=== PATIENT | male | born 1980 | race Caucasian/White ===

== ENCOUNTER → 2016-08-23 | Outpatient (CLI) | payer MEDICARE, MEDICAID | LOC: RAD 08:21 | PROVIDERS: ATTEND Nurse Practitioner Family | DX: R56.9 Unspecified convulsions (principal) | CPT/HCPCS: 70553; 70250; A9577 ==

== ENCOUNTER 2016-08-24 13:06 | Emergency (ER) | payer MEDICARE, MEDICAID ==
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
[2016-08-24 13:49] LABS: ABSOLUTE LYMPHOCYTES (AUTO) 1.7 10^3/uL (0.5-4.7); ABSOLUTE MONOCYTES (AUTO) 0.4 10^3/uL (0.1-1.4); BASOPHILS % (AUTO) 0.3 % (0-2); EOSINOPHILS % (AUTO) 0.7 % (0-6); HEMATOCRIT 42.1 % (37.9-51.0); HEMOGLOBIN 14.8 g/dL (13.5-17.0); HGB HCT DIFFERENCE 2.3; LYMPHOCYTES % (AUTO) 28.3 % (13-45); MEAN CORPUSCULAR HEMOGLOBIN 30.8 pg (27.0-33.4); MEAN CORPUSCULAR HGB CONC 35.1 g/dL (32.0-36.0); MEAN CORPUSCULAR VOLUME 88 fl (80-97); SEGMENTED NEUTROPHILS % (AUTO) 64.7 % (42-78); WHITE BLOOD COUNT 6.1 10^3/uL (4.0-10.5)
--- NOTE | 2016-08-24 13:50 | EKG REPORT ---
SEVERITY:- NORMAL ECG - SINUS RHYTHM : Confirmed by: Azeem Corcoran 24-Aug-2016 13:49:17
[2016-08-24 14:10] LABS: APPEARANCE,URINE SLIGHTLY-CLOUDY; BILIRUBIN,URINE NEGATIVE (NEGATIVE); GLUCOSE, URINE NEGATIVE (NEGATIVE); KETONES,URINE NEGATIVE (NEGATIVE); LEUKOCYTE ESTERASE,URINE NEGATIVE (NEGATIVE); NITRITE,URINE NEGATIVE (NEGATIVE); PROTEIN,URINE NEGATIVE (NEGATIVE); URINE SPECIFIC GRAVITY 1.023; UROBILINOGEN,URINE NEGATIVE mg/dL (<2.0)
[2016-08-24 14:11] LABS: ALANINE AMINOTRANSFERASE 84 U/L (21-72); ALBUMIN 4.6 g/dL (3.5-5.0); ALKALINE PHOSPHATASE 79 U/L (38-126); ANION GAP 13 (5-19); ASPARTATE AMINO TRANSFERASE 38 U/L (17-59); BILIRUBIN,TOTAL 0.4 mg/dL (0.2-1.3); BLOOD UREA NITROGEN 14 mg/dL (7-20); CALCIUM 9.7 mg/dL (8.4-10.2); CARBON DIOXIDE 27 mmol/L (22-30); CHLORIDE 108 mmol/L (98-107); GLUCOSE 81 mg/dL (75-110); POTASSIUM 4.8 mmol/L (3.6-5.0); SODIUM 148.1 mmol/L (137-145); TOTAL PROTEIN 7.3 g/dL (6.3-8.2)
[2016-08-24 14:12] LABS: ALCOHOL < 10 mg/dL (NONE DETECTED)
[2016-08-24 14:16] LABS: URINE BARBITURATES SCREEN NEGATIVE; URINE METHADONE SCREEN NEGATIVE; URINE PHENCYCLIDINE SCREEN NEGATIVE
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
--- NOTE | 2016-08-25 10:34 | ER Document Report ---
ED Psych Disorder / Suicide - General Chief Complaint: Psych Problem Stated Complaint: IVC/PAPERS Mode of Arrival: Ambulatory TRAVEL OUTSIDE OF THE [place] IN LAST 30 DAYS: No - Related Data Allergies/Adverse Reactions: codeine Allergy (Verified 08/24/16 13:10) Home Medications: Current Home Medications Aripiprazole [Abilify 5 mg Tablet] 5 mg PO BID 08/24/16 [History] Benztropine Mesylate [Benztropine Mesylate 0.5 mg Tablet] 0.5 mg PO BID [History] Clonazepam [Klonopin] 0.5 mg PO BID 08/24/16 [History] Lamotrigine [Lamictal Xr] 400 mg PO QHS 08/24/16 [History] Olanzapine [Zyprexa] 10 mg PO Q12 08/24/16 [History] Oxcarbazepine [Trileptal] 600 mg PO BID 08/24/16 [History] Topiramate [Trokendi Xr] 100 mg PO QHS 08/24/16 [History] Topiramate [Trokendi Xr] 200 mg PO QHS 08/24/16 [History] Past Medical History - General Information source: Patient - Social History Smoking Status: Never Smoker Cigarette use (# per day): No Chew tobacco use (# tins/day): Yes Frequency of alcohol use: None Drug Abuse: None Family History: Reviewed & Not Pertinent Patient has suicidal ideation: Yes Patient has homicidal ideation: Yes Neurological Medical History: Reports: Hx Seizures Psychiatric Medical History: Reports: Hx Depression, Hx Schizophrenia - Schizoaffective disorder - Immunizations Hx Diphtheria, Pertussis, Tetanus Vaccination: No Physical Exam - Vital signs Vitals: Temp Pulse Resp BP Pulse Ox 97.8 F 66 18 118/68 100 08/24/16 13:10 08/24/16 13:10 08/24/16 13:10 08/24/16 13:10 08/24/16 13:10 Course - Re-evaluation Re-evalutation: 08/25/16 10:33 Patient is awake and alert. To this examiner he has no specific complaints at this time. PE: Cooperative, chest clear to auscultation bilaterally, breath sounds are equal moves extremities well. Speech is clear. He answers questions appropriately. Awaiting mental health transfer. - Vital Signs Vital signs: Temp Pulse Resp BP Pulse Ox 97.8 F 69 18 113/66 99 08/24/16 13:10 08/25/16 05:09 08/25/16 05:09 08/25/16 05:09 08/25/16 05:09 - Laboratory Result Diagrams: 08/24/16 13:25 08/24/16 13:25 Laboratory results interpreted by me: 08/24/16 13:25 Sodium 148.1 H Chloride 108 H ALT 84 H Salicylates < 1.0 L Acetaminophen < 10 L Discharge - Discharge Clinical Impression: Hearing voices Schizophrenia Qualifiers: Schizophrenia type: unspecified Qualified Code(s): F20.9 - Schizophrenia, unspecified Condition: Stable Disposition: PSYCH HOSP/UNIT
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
[2016-08-25] MEDS: OLANZAPINE 5 MG TABLET PO SCH (16:30)
[2016-08-25] MEDS: OXCARBAZEPINE 150 MG TABLET PO SCH (16:31)
[2016-08-25] MEDS: BENZTROPINE MESYLATE 1 MG TABLET PO SCH (16:31)
[2016-08-25] MEDS: CLONAZEPAM 1 MG TABLET PO SCH (16:33)
[2016-08-25] MEDS ORDERED: TOPIRAMATE 100 MG TABLET ONE (21:28)
[2016-08-25] MEDS: TOPIRAMATE 100 MG TABLET PO SCH (21:45)
[2016-08-25] MEDS: LAMOTRIGINE 100 MG TABLET PO SCH (21:46)
[2016-08-26] MEDS: BENZTROPINE MESYLATE 1 MG TABLET PO SCH ×2 (09:41→17:42)
[2016-08-26] MEDS: CLONAZEPAM 1 MG TABLET PO SCH ×2 (09:41→17:41)
[2016-08-26] MEDS: OLANZAPINE 5 MG TABLET PO SCH (09:42)
[2016-08-26] MEDS: OXCARBAZEPINE 150 MG TABLET PO SCH ×2 (09:42→17:41)
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
[2016-08-26] MEDS ORDERED: ARIPIPRAZOLE 5 MG TABLET PO SCH (14:00)
[2016-08-26] MEDS ORDERED: RISPERIDONE 0.25 MG TABLET PO SCH (14:00)
[2016-08-26] MEDS ORDERED: ARIPIPRAZOLE 5 MG TABLET PO ONE (15:30)
[2016-08-26] MEDS ORDERED: RISPERIDONE 0.25 MG TABLET PO ONE (15:30)
[2016-08-26] MEDS: LAMOTRIGINE 100 MG TABLET PO SCH (23:05)
[2016-08-26] MEDS: TOPIRAMATE 100 MG TABLET PO SCH (23:05)
[2016-08-26] MEDS: RISPERIDONE 0.25 MG TABLET PO SCH (23:05)
[2016-08-27] MEDS: RISPERIDONE 0.25 MG TABLET PO SCH (09:09)
[2016-08-27] MEDS: CLONAZEPAM 1 MG TABLET PO SCH (09:09)
[2016-08-27] MEDS: BENZTROPINE MESYLATE 1 MG TABLET PO SCH (09:09)
[2016-08-27] MEDS: OXCARBAZEPINE 150 MG TABLET PO SCH (09:10)
--- NOTE | 2016-08-27 09:22 | ER Document Report ---
Doctor's Note Notes: 08/27/16 09:22 Lab work vital signs have been reviewed. At this time patient is currently stable with no overnight events requiring no intervention at this time. Patient stable for transfer or other disposition
[2016-08-27 11:20] VITALS: BP 114/62
--- NOTE | 2016-08-28 08:07 | PSYCHOLOGICAL NOTE ---
Psych Note - Psych Note Psych Note: Reevaluation: Clinician conducted check in with patient, patient smiled when he saw clinician. He discussed that he would like to get a job and that he loves living in his longterm. He continue just state that he needs therapy however he is unable to schedule because they say he's canceled too often. When asked about coping skills he stated he refuses to use them because the breathing stuff does not work. When asked what does work he states he listens to the radio. Patient disclosed that he knows Vicky wanted him to be more involved with the longterm but sometimes it gets "crowded." Patient has demonstrated marked improvement no longer meets criteria and is recommended for rescind of IVC this considered psychiatrically clear for discharge. Patient mood euthymic with congruent affect observe to smile and laugh. Dr. Hendrix was consulted on this patient attending physician is in agreement with the recommendations and disposition.
== END 2016-08-27 11:20 | disposition home or self-care (01) ==
LOC: ER 13:06
DX: F25.9 Schizoaffective disorder, unspecified (principal); Z91.14 Patient's other noncompliance with medication regimen; Z88.5 Allergy status to narcotic agent; Z72.0 Tobacco use
CPT/HCPCS: 93005; 99285; 36415; 80307 ×4; 85025; 80053; 81001; 93010; A9270 ×18; J3490

== ENCOUNTER → 2017-02-18 | Outpatient (CLI) | payer MEDICARE, MEDICAID | LOC: OD 11:17 | PROVIDERS: ATTEND Physician Assistant | DX: F25.0 Schizoaffective disorder, bipolar type (principal); Z79.899 Other long term (current) drug therapy | CPT/HCPCS: 36415; 83036; 84146 ==

== ENCOUNTER → 2017-02-20 | Outpatient (CLI) | payer MEDICARE, MEDICAID ==
[2017-02-20 10:30] LABS: CHOLESTEROL 208.31 mg/dL (0-200); Direct HDL 36 mg/dL (>40); TRIGLYCERIDES 208 mg/dL (<150)
[2017-02-20 10:43] LABS: DIRECT LDL 102 mg/dL (<100)
[2017-02-20 10:47] LABS: VLDL CHOLESTEROL 41.6 mg/dL (10-31)
== END ==
LOC: OD 09:31
PROVIDERS: ATTEND Physician Assistant
DX: F25.0 Schizoaffective disorder, bipolar type (principal); Z79.899 Other long term (current) drug therapy
CPT/HCPCS: 36415; 80061

== ENCOUNTER → 2019-05-09 | Outpatient (CLI) | payer MEDICARE, MEDICAID ==
[2019-05-09 11:03] LABS: ABSOLUTE EOSINOPHILS # (AUTO) 0.1 10^3/uL (0.0-0.6); ABSOLUTE LYMPHOCYTES (AUTO) 1.7 10^3/uL (0.5-4.7); ABSOLUTE MONOCYTES (AUTO) 0.4 10^3/uL (0.1-1.4); ABSOLUTE NEUT (AUTO) 3.8 10^3/uL (1.7-8.2); BASOPHILS % (AUTO) 0.4 % (0-2); EOSINOPHILS % (AUTO) 1.2 % (0-6); HEMATOCRIT 43.3 % (37.9-51.0); LYMPHOCYTES % (AUTO) 28.1 % (13-45); MEAN CORPUSCULAR HEMOGLOBIN 30.4 pg (27.0-33.4); MEAN CORPUSCULAR HGB CONC 34.6 g/dL (32.0-36.0); MEAN CORPUSCULAR VOLUME 88 fl (80-97); MONOCYTES % (AUTO) 6.6 % (3-13); PLATELET COUNT 207 10^3/uL (150-450); RED BLOOD COUNT 4.92 10^6/uL (4.35-5.55); RED CELL DISTRIBUTION WIDTH 12.8 % (11.5-14.0); SEGMENTED NEUTROPHILS % (AUTO) 63.7 % (42-78); TOTAL CELLS COUNTED % (AUTO) 100 %; WHITE BLOOD COUNT 5.9 10^3/uL (4.0-10.5)
[2019-05-09 11:09] LABS: ALBUMIN 4.5 g/dL (3.5-5.0); ALKALINE PHOSPHATASE 94 U/L (38-126); ANION GAP 11 (5-19); ASPARTATE AMINO TRANSFERASE 27 U/L (17-59); BILIRUBIN,DIRECT 0.2 mg/dL (0.0-0.4); BILIRUBIN,TOTAL 0.3 mg/dL (0.2-1.3); BLOOD UREA NITROGEN 13 mg/dL (7-20); CALCIUM 9.5 mg/dL (8.4-10.2); CARBON DIOXIDE 25 mmol/L (22-30); CHLORIDE 105 mmol/L (98-107); CHOLESTEROL 222.14 mg/dL (0-200); GLUCOSE 97 mg/dL (75-110); POTASSIUM 4.5 mmol/L (3.6-5.0); TOTAL PROTEIN 7.3 g/dL (6.3-8.2); TRIGLYCERIDES 218 mg/dL (<150)
[2019-05-09 11:20] LABS: DIRECT LDL 96 mg/dL (<100)
[2019-05-09 11:23] LABS: VLDL CHOLESTEROL 43.6 mg/dL (10-31)
== END ==
LOC: OD 09:39
PROVIDERS: ATTEND Internal Medicine
DX: Z00.00 Encounter for general adult medical examination without abnormal findings (principal); E78.00 Pure hypercholesterolemia, unspecified; R63.5 Abnormal weight gain; F17.210 Nicotine dependence, cigarettes, uncomplicated; Z79.899 Other long term (current) drug therapy
CPT/HCPCS: 36415; 80053; 80061; 85025

== ENCOUNTER → 2020-01-14 | Outpatient (CLI) | payer MEDICARE, MEDICAID ==
[2020-01-14 09:09] LABS: ABSOLUTE EOSINOPHILS # (AUTO) 0.2 10^3/uL (0.0-0.6); ABSOLUTE MONOCYTES (AUTO) 0.5 10^3/uL (0.1-1.4); ABSOLUTE NEUT (AUTO) 3.9 10^3/uL (1.7-8.2); BASOPHILS % (AUTO) 0.4 % (0-2); EOSINOPHILS % (AUTO) 2.5 % (0-6); HEMOGLOBIN 15.7 g/dL (13.5-17.0); LYMPHOCYTES % (AUTO) 29.9 % (13-45); MEAN CORPUSCULAR HEMOGLOBIN 31.9 pg (27.0-33.4); MEAN CORPUSCULAR HGB CONC 35.7 g/dL (32.0-36.0); MEAN CORPUSCULAR VOLUME 89 fl (80-97); MONOCYTES % (AUTO) 7.4 % (3-13); PLATELET COUNT 215 10^3/uL (150-450); RED BLOOD COUNT 4.92 10^6/uL (4.35-5.55); RED CELL DISTRIBUTION WIDTH 12.9 % (11.5-14.0); SEGMENTED NEUTROPHILS % (AUTO) 59.8 % (42-78); TOTAL CELLS COUNTED % (AUTO) 100 %; WHITE BLOOD COUNT 6.6 10^3/uL (4.0-10.5)
[2020-01-14 09:33] LABS: ALBUMIN 4.3 g/dL (3.5-5.0); ALKALINE PHOSPHATASE 107 U/L (38-126); ANION GAP 9 (5-19); ASPARTATE AMINO TRANSFERASE 28 U/L (17-59); BILIRUBIN,TOTAL 0.3 mg/dL (0.2-1.3); BLOOD UREA NITROGEN 22 mg/dL (7-20); CALCIUM 9.2 mg/dL (8.4-10.2); CARBON DIOXIDE 24 mmol/L (22-30); CHLORIDE 106 mmol/L (98-107); CHOLESTEROL 221.37 mg/dL (0-200); GLUCOSE 101 mg/dL (75-110); POTASSIUM 4.9 mmol/L (3.6-5.0); TOTAL PROTEIN 7.4 g/dL (6.3-8.2); TRIGLYCERIDES 398 mg/dL (<150)
[2020-01-14 09:44] LABS: DIRECT LDL 105 mg/dL (<100)
[2020-01-14 09:50] LABS: VLDL CHOLESTEROL 79.6 mg/dL (10-31)
== END ==
LOC: OD 08:25
PROVIDERS: ATTEND Physician Assistant
DX: F25.0 Schizoaffective disorder, bipolar type (principal); Z79.899 Other long term (current) drug therapy
CPT/HCPCS: 36415; 80053; 80061; 83036; 85025

== ENCOUNTER → 2020-06-07 | Outpatient (CLI) | payer MEDICARE, MEDICAID ==
[2020-06-07 08:46] LABS: ABSOLUTE EOSINOPHILS # (AUTO) 0.2 10^3/uL (0.0-0.6); ABSOLUTE LYMPHOCYTES (AUTO) 1.8 10^3/uL (0.5-4.7); ABSOLUTE MONOCYTES (AUTO) 0.5 10^3/uL (0.1-1.4); ABSOLUTE NEUT (AUTO) 3.8 10^3/uL (1.7-8.2); BASOPHILS % (AUTO) 0.4 % (0-2); EOSINOPHILS % (AUTO) 2.5 % (0-6); HEMATOCRIT 40.9 % (37.9-51.0); HEMOGLOBIN 14.7 g/dL (13.5-17.0); LYMPHOCYTES % (AUTO) 28.6 % (13-45); MEAN CORPUSCULAR HEMOGLOBIN 31.7 pg (27.0-33.4); MEAN CORPUSCULAR VOLUME 88 fl (80-97); MONOCYTES % (AUTO) 7.2 % (3-13); PLATELET COUNT 197 10^3/uL (150-450); RED BLOOD COUNT 4.64 10^6/uL (4.35-5.55); SEGMENTED NEUTROPHILS % (AUTO) 61.3 % (42-78); TOTAL CELLS COUNTED % (AUTO) 100 %; WHITE BLOOD COUNT 6.3 10^3/uL (4.0-10.5)
[2020-06-07 08:59] LABS: ALBUMIN 4.3 g/dL (3.5-5.0); ALKALINE PHOSPHATASE 92 U/L (38-126); ANION GAP 10 (5-19); ASPARTATE AMINO TRANSFERASE 30 U/L (17-59); BILIRUBIN,DIRECT 0.3 mg/dL (0.0-0.4); BILIRUBIN,TOTAL 0.4 mg/dL (0.2-1.3); BLOOD UREA NITROGEN 20 mg/dL (7-20); CALCIUM 9.2 mg/dL (8.4-10.2); CARBON DIOXIDE 26 mmol/L (22-30); CHLORIDE 108 mmol/L (98-107); CHOLESTEROL 203.42 mg/dL (0-200); GLUCOSE 96 mg/dL (75-110); POTASSIUM 4.5 mmol/L (3.6-5.0); TOTAL PROTEIN 7.1 g/dL (6.3-8.2); TRIGLYCERIDES 157 mg/dL (<150)
[2020-06-07 09:10] LABS: DIRECT LDL 109 mg/dL (<100)
[2020-06-07 09:11] LABS: VLDL CHOLESTEROL 31.4 mg/dL (10-31)
== END ==
LOC: OD 07:17
PROVIDERS: ATTEND Internal Medicine
DX: Z00.00 Encounter for general adult medical examination without abnormal findings (principal); I10 Essential (primary) hypertension; E78.00 Pure hypercholesterolemia, unspecified; Z79.899 Other long term (current) drug therapy
CPT/HCPCS: 36415; 80053; 80061; 85025